=== PATIENT | female | born 1945 | race Caucasian/White ===

== ENCOUNTER 2024-01-18 11:02 | Outpatient (CLI) | payer MEDICARE, OTHER ==
[2024-01-18 11:44] VITALS: PULSE 96; RESP 13; O2SAT 95
== END 2024-01-18 23:59 | disposition home or self-care (01) ==
LOC: RT 11:02
PROVIDERS: ATTEND Family Medicine
DX: R06.09 Other forms of dyspnea (principal); Z87.891 Personal history of nicotine dependence
CPT/HCPCS: 94010; 94729; 94760